=== PATIENT | male | born 1960 | race Caucasian/White ===

== ENCOUNTER 2017-01-29 12:37 | Emergency (ER) | payer OTHER ==
[2017-01-29] MEDS ORDERED: APAP/HYDROCODONE 325/5 TAB ONE (13:07)
[2017-01-29] MEDS ORDERED: KETOROLAC TROMETHAMINE 30 MG/ML SOL ONE (13:07)
[2017-01-29] MEDS: KETOROLAC TROMETHAMINE 30 MG/ML SOL IM ONE (13:08)
[2017-01-29] MEDS: APAP/HYDROCODONE 325/5 TAB PO ONE (13:08)
[2017-01-29] MEDS ORDERED: HYDROMORPHONE HCL 2 MG/ML SOL ONE (13:46)
[2017-01-29] MEDS ORDERED: ONDANSETRON HCL 4 MG/2 ML SOL ONE (13:50)
[2017-01-29] MEDS: HYDROMORPHONE HCL 2 MG/ML SOL IV ONE (13:50)
[2017-01-29] MEDS: ONDANSETRON HCL 4 MG/2 ML SOL IV ONE (13:55)
[2017-01-29] MEDS ORDERED: SODIUM CHLORIDE 0.9% FLUSH 10 ML SOL IV PRN (13:57)
[2017-01-29 14:15] VITALS: RESP 18; TEMP 97.9
[2017-01-29 14:51] VITALS: BP 127/88; PULSE 89; O2SAT 97
== END 2017-01-29 14:42 | disposition home or self-care (01) | DRG 566 ==
LOC: ED 12:37
DX: S42.112A Displaced fracture of body of scapula, left shoulder, initial encounter for closed fracture (principal); W19.XXXA Unspecified fall, initial encounter
CPT/HCPCS: 73030; 96372; 96374; 96375; 99284; 99285; J1170; J1885; J2405